=== PATIENT | male | born 1975 | race African-American/Black ===

== ENCOUNTER 2017-11-02 09:42 | Emergency (ER) | payer OTHER ==
[2017-11-02 09:57] VITALS: BMI 38.0
[2017-11-02] MEDS ORDERED: ALBUTEROL SO4 2.5/IPRATROPIUM 0.5 INH SOL 3 ML VIAL.NEB. NEB ONE ×2 (11:20→11:26)
--- NOTE | 2017-11-02 11:25 | PDOC ---
History of Present Illness - General Chief Complaint: Cold Symptoms Stated Complaint: SOB Time Seen by Provider: 11/02/17 11:01 History Source: Patient Exam Limitations: No Limitations - History of Present Illness Initial Comments: 11/02/17 11:25 42 yr male with cough, right ear pain , worse the past 2 days wheezing last night with tightness in chest with coughing history of DM, renal transplant, HTN, obesity ,asthma as a child no fever no chills no foreign travel non smoker 11/02/17 11:50 Past History - Past Medical History Allergies/Adverse Reactions: Allergies Allergy/AdvReac Type Severity Reaction Status Date / Time iodine Allergy Verified 11/02/17 09:52 Home Medications: Ambulatory Orders Furosemide [Lasix] 40 mg PO DAILY 11/02/17 Rosuvastatin Calcium [Crestor] 40 mg PO DAILY 11/02/17 COPD: No DVT: No Diabetes: Yes (IDDM) HTN: Yes Hypercholesterolemia: Yes - Immunization History Immunization Up to Date: Yes - Suicide/Smoking/Psychosocial Hx Smoking History: Never smoked Hx Alcohol Use: No Drug/Substance Use Hx: No Substance Use Type: None Review of Systems - Review of Systems Able to Perform ROS?: Yes Is the patient limited American proficient: No Constitutional: No: Symptoms Reported HEENTM: Yes: Symptoms Reported, Ear Pain Respiratory: Yes: Symptoms reported, Cough Cardiac (ROS): No: Symptoms Reported ABD/GI: No: Symptoms Reported : No: Symptoms Reported Musculoskeletal: No: Symptoms Reported Integumentary: No: Symptoms Reported Neurological: No: Symptoms reported *Physical Exam - Vital Signs Last Vital Signs Temp Pulse Resp BP Pulse Ox 98.8 F 87 15 131/95 98 11/02/17 09:53 11/02/17 09:53 11/02/17 09:53 11/02/17 09:53 11/02/17 09:53 - Physical Exam General Appearance: Yes: Nourished, Appropriately Dressed, Obese HEENT: positive: EOMI, CRISTY, Normal ENT Inspection, TMs Normal, Pharynx Normal. negative: Pharyngeal Erythema Neck: positive: Supple Respiratory/Chest: positive: Wheezing (mild exp ). negative: Crackles, Rales, Rhonchi, Stridor Cardiovascular: positive: Regular Rhythm, Regular Rate Gastrointestinal/Abdominal: positive: Normal Bowel Sounds, Soft Musculoskeletal: positive: Normal Inspection Extremity: positive: Normal Capillary Refill, Normal Inspection, Normal Range of Motion Integumentary: positive: Normal Color, Dry, Warm Neurologic: positive: Fully Oriented, Alert, Normal Mood/Affect, Normal Response , Motor Strength 5/5 Heart Score/ECG Review - History History: Moderately suspicious - Risk Factors Risk Factors Heart Score: Yes Hx Hypertension, Yes Hx Diabetes, Yes Hx Obesity - ECG Intrepretation Rhythm: Regular Rhythm (first degree block) ED Treatment Course - LABORATORY CBC & Chemistry Diagram: 11/02/17 12:40 11/02/17 12:40 Medical Decision Making - Medical Decision Making 11/02/17 11:39 cc: cough ear pain sinus congestion, mild exp wheezing speaking full sentences without any distress will give duoneb now 11/02/17 11:51 pt states he has chest heaviness after the nebulizer treatment will get EKG, CXR pt has had negative stress test in the past has a agency cashier in the [place] 11/02/17 12:07 signed out to in main ER pt placed in bed 3A. *DC/Admit/Observation/Transfer Diagnosis at time of Disposition: Acute viral bronchitis - Discharge Dispostion Disposition: HOME Condition at time of disposition: Improved - Referrals Referrals: ON STAFF,NOT [Primary Care Provider] - - Patient Instructions Printed Discharge Instructions: DI for Acute Bronchitis - Post Discharge Activity
[2017-11-02] MEDS ORDERED: ACETAMINOPHEN 500 MG TABLET (FP) PO ONE (12:23)
--- NOTE | 2017-11-02 12:24 | PDOC ---
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 denies any currentl cp. ptnotes he occasionally has this pain, onset anytime without any triggers(such as exertion) and sometimes comes at rest. Patient denies any nausea, vomiting, diaphoresis, leg swelling, dyspnea on exertion, chest pain with exertion. The patient states that he sees a motor tester in the [place] had a negative stress test sep 2016. On exam the patient is well-appearing, no acute distress, Pulm exam CTA, no wheezes abd soft nontender card: rrr, no mrg suspect uri will obtain cxr to r/o pna trop to screen for mi ekg to screen for acs - Physicial Exam PE: 11/03/17 11:30 seea bve - Medical Decision Making pts trop neg x2 feeling better at traige, no cp or sob will dc with pmd fu return precautions were discussed Heart Score/ECG Review - ECG Impressions Comment:: 11/02/17 13:40 Twelve-lead EKG was performed and reviewed by me. There is normal sinus rhythm with a normal rate. Rate of 83 1st Degree AV block nonspecific twi in lead III
[2017-11-02] MEDS ORDERED: ACETAMINOPHEN 325 MG TABLET (FP) ONE (12:27)
[2017-11-02 12:56] LABS: BASO % 0.8 % (0-2.0); EOS % 5.2 % (0-4.5); HEMATOCRIT 44.5 % (35.4-49); HEMOGLOBIN 14.1 GM/dL (11.7-16.9); LYMPH % 23.2 % (8-40); MCH 26.3 pg (25.7-33.7); MCHC 31.7 g/dl (32.0-35.9); MEAN CELL VOLUME 83.1 fl (80-96); MONO % 6.6 % (3.8-10.2); NEUT % 64.2 % (42.8-82.8); PLATELET COUNT 277 K/MM3 (134-434); RBC 5.36 M/mm3 (4.00-5.60); RDW 15.8 % (11.9-15.9); WHITE BLOOD COUNT 10.6 K/mm3 (4.0-10.0)
--- NOTE | 2017-11-02 13:21 | PDOC ---
History of Present Illness - General Chief Complaint: Cold Symptoms Stated Complaint: SOB Time Seen by Provider: 11/02/17 11:01 History Source: Patient Exam Limitations: No Limitations - History of Present Illness Initial Comments: 11/02/17 13:14 Patient is a 42M with history of renal transplant 2/2 FSGS 25 years ago, DM, HTN , asthma here today from fast track after being found to have chest pain. Patient initially stated that he had cold symptoms, including cough and rhinorrhea. He states that starting Thursday he had chest pain that he described as a pressure that is worsened with cough. Denies fevers, chills, nausea, vomiting. Denies leg swelling, history of PE, recent travel. Denies focal neuro deficits. Endorses compliance with his anti-rejection medications. Past History - Past Medical History Allergies/Adverse Reactions: Allergies Allergy/AdvReac Type Severity Reaction Status Date / Time iodine Allergy Verified 11/02/17 09:52 Home Medications: Ambulatory Orders Furosemide [Lasix] 40 mg PO DAILY 11/02/17 Rosuvastatin Calcium [Crestor] 40 mg PO DAILY 11/02/17 COPD: No DVT: No Diabetes: Yes HTN: Yes Hypercholesterolemia: Yes - Immunization History Immunization Up to Date: Yes - Suicide/Smoking/Psychosocial Hx Smoking History: Never smoked Hx Alcohol Use: No Drug/Substance Use Hx: No Substance Use Type: None Review of Systems - Review of Systems Comments:: 11/02/17 13:22 GENERAL/CONSTITUTIONAL: No fever or chills. No weakness. HEAD, EYES, EARS, NOSE AND THROAT: No change in vision. No ear pain or discharge. No sore throat. CARDIOVASCULAR: +chest pain +shortness of breath RESPIRATORY: +cough, no wheezing, or hemoptysis. GASTROINTESTINAL: No nausea, vomiting, diarrhea or constipation. GENITOURINARY: No dysuria, frequency, or change in urination. MUSCULOSKELETAL: No joint or muscle swelling or pain. No neck or back pain. SKIN: No rash NEUROLOGIC: +headache, no vertigo, loss of consciousness, or change in strength/ sensation. ENDOCRINE: No increased thirst. No abnormal weight change HEMATOLOGIC/LYMPHATIC: No anemia, easy bleeding, or history of blood clots. ALLERGIC/IMMUNOLOGIC: No hives or skin allergy. Is the patient limited Tajik proficient: No *Physical Exam - Vital Signs Last Vital Signs Temp Pulse Resp BP Pulse Ox 98.8 F 87 15 131/95 98 11/02/17 09:53 11/02/17 09:53 11/02/17 09:53 11/02/17 09:53 11/02/17 09:53 - Physical Exam Comments: 11/02/17 13:22 GENERAL: Awake, alert, and fully oriented, in no acute distress HEAD: No signs of trauma, normocephalic, atraumatic EYES: PERRLA, EOMI, sclera anicteric, conjunctiva clear ENT: Auricles normal inspection, hearing grossly normal, nares patent, oropharynx clear without exudates. Moist mucosa NECK: Normal ROM, supple, no lymphadenopathy, JVD, or masses LUNGS: No distress, speaks full sentences, clear to auscultation bilaterally HEART: Regular rate and rhythm, normal S1 and S2, no murmurs, rubs or gallops, peripheral pulses normal and equal bilaterally. ABDOMEN: Soft, nontender, normoactive bowel sounds. No guarding, no rebound. No masses EXTREMITIES: Normal inspection, Normal range of motion, no edema. No clubbing or cyanosis. NEUROLOGICAL: Cranial nerves II through XII grossly intact. Normal speech, normal gait, no focal sensorimotor deficits SKIN: Warm, Dry, normal turgor, no rashes or lesions noted. ED Treatment Course - LABORATORY CBC & Chemistry Diagram: 11/02/17 12:40 11/02/17 12:40 - ADDITIONAL ORDERS Additional order review: 11/02/17 12:40 RBC 5.36 MCV 83.1 MCHC 31.7 L RDW 15.8 MPV 9.0 Neutrophils % 64.2 Lymphocytes % 23.2 Monocytes % 6.6 Eosinophils % 5.2 H Basophils % 0.8 - Medications Given in the ED: ED Medications Discontinued Medications Generic Name Dose Route Start Last Admin Trade Name Freq PRN Reason Stop Dose Admin Acetaminophen 975 mg 11/02/17 12:23 11/02/17 12:31 Tylenol - PO 11/02/17 12:24 975 mg ONCE ONE Administration Albuterol/Ipratropium 1 amp 11/02/17 11:20 11/02/17 11:27 Duoneb - NEB 11/02/17 11:21 1 amp ONCE ONE Administration Medical Decision Making - Medical Decision Making 11/02/17 13:23 Patient is 42M with history of renal transplant 2/2 FSGS, DM, HTN here today complaining of chest pain. Vitals normal and stable. Patient also complaining of URI symptoms. PE normal. DDx includes, but is not limited to: pneumonia, ACS , arrhythmia, bronchitis. Patient appears well and pain is reproducible with palpation, do not suspect dissection. PERC negative, PE unlikely. Patient's story is not especially concerning for pneumonia, but given immune compromised status will have low threshold to treat a pneumonia. EKG shows sinus rhythm with 1st degree AV block ([place] 256). No st elevations/ depressions. Normal axis. Normal intervals. Inverted t wave in lead III. CXR shows no acute cardiopulmonary process. No signs of pneumonia. 11/02/17 14:40 Trop undetectable, CBC normal. CMP shows Cr at 1.5, patient reports that is his baseline. 2nd trop pending at 1540. 11/02/17 16:48 Second trop undetectable. Will d/c home with instructions to f/u with cards. *DC/Admit/Observation/Transfer Diagnosis at time of Disposition: Acute viral bronchitis - Discharge Dispostion Disposition: HOME Condition at time of disposition: Improved - Referrals Referrals: Benjamin Aguilar MD [Staff Physician] - - Patient Instructions Printed Discharge Instructions: DI for Acute Bronchitis Additional Instructions: You were seen today in the ED for chest pain. There is no evidence that you are currently having a heart attack, but you still should be seen by a material manager as an outpatient. Please follow up with cardiology this week. Please return if you have any new, worsening or concerning symptoms, especially worsening pain, shortness of breath and fever. - Post Discharge Activity Forms/Work/School Notes: Back to Work
[2017-11-02 13:32] LABS: ALBUMIN 3.6 g/dl (3.4-5.0); ALK PHOS 100 U/L (45-117); ANION GAP 5 MMOL/L (8-16); BILIRUBIN,TOTAL 0.5 mg/dL (0.2-1); BLOOD UREA NITROGEN 22 mg/dL (7-18); CALCIUM 8.5 mg/dL (8.5-10.1); CHLORIDE 103 mmol/L (98-107); CO2 30 mmol/L (21-32); CREATININE 1.5 mg/dL (0.55-1.3); GLUCOSE,RANDOM 182 mg/dL (74-106); POTASSIUM 4.5 mmol/L (3.5-5.1); SGOT/AST 19 U/L (15-37); SGPT/ALT 20 U/L (13-61); SODIUM 138 mmol/L (136-145); TOT PROT 7.9 g/dl (6.4-8.2)
[2017-11-02 17:06] VITALS: BP 130/98; PULSE 85; TEMP 97.3
--- NOTE | 2017-11-02 18:07 | EKG ---
Test Reason : Blood Pressure : / mmHG Vent. Rate : 083 BPM Atrial Rate : 083 BPM P-R Int : 256 ms QRS Dur : 098 ms QT Int : 414 ms P-R-T Axes : 044 030 -04 degrees QTc Int : 486 ms SINUS RHYTHM WITH 1ST DEGREE A-V BLOCK ANTERIOR INFARCT , AGE UNDETERMINED ABNORMAL ECG NO PREVIOUS ECGS AVAILABLE Confirmed by GALINA CAMPOVERDE MD ([id number]) on 11/02/2017 6:07:22 PM Referred By: Confirmed By:GALINA CAMPOVERDE MD
== END 2017-11-02 17:00 | disposition home or self-care (01) ==
LOC: JERFT 09:42 → JER 09:42
PROC: 3E0F7GC Introduction of Other Therapeutic Substance into Respiratory Tract, Via Natural or Artificial Opening (ICD-10-PCS; principal; 2017-11-02)
DX: J20.9 Acute bronchitis, unspecified (principal); E11.9 Type 2 diabetes mellitus without complications; Z79.4 Long term (current) use of insulin; I10 Essential (primary) hypertension; Z94.0 Kidney transplant status; Z68.38 Body mass index [BMI] 38.0-38.9, adult
CPT/HCPCS: 36415; 71046-TC-FY; 80053; 82550; 82553; 84484; 85025; 93005; 93010; 99282-25; J7620